=== PATIENT | female | born 2000 | race Caucasian/White ===

== ENCOUNTER 2021-06-05 16:10 | Emergency (ER) | payer OTHER, SELFPAY ==
--- NOTE | ~2021-06-05 | XR_ITS ---
EXAMINATION: XR chest 2V 06/05/2021 19:00 INDICATION: Chest wall pain PROCEDURE: 2 view chest COMPARISON: No prior studies for comparison. FINDINGS: The lungs are clear. The cardiomediastinal silhouette is within normal limits. There are no pleural effusions. There is no pneumothorax suspected. IMPRESSION: 1: NO ACUTE CARDIOPULMONARY DISEASE. Reviewed, dictated and finalized at location A. ANESE WHEELER
--- NOTE | ~2021-06-05 | XR_ITS ---
[id number] 06/05/2021 19:01 Indication: Neck pain Procedure: 3 views of the cervical spine Comparison: No prior studies for comparison. Findings: Vertebral body and disc heights are preserved. No fracture, subluxation or dislocation. No prevertebral soft tissue abnormality. Odontoid process is normal. Lung apices are normal. Impression: 1: No acute abnormality of the cervical spine. Reviewed, dictated and finalized at location A. REFINISHER Impression: 1: No acute abnormality of the cervical spine.
[2021-06-05 16:13] VITALS: BP 112/82; PULSE 90; RESP 16; TEMP 36.4; O2SAT 100
[2021-06-05 17:24] VITALS: BP 115/76; PULSE 98; RESP 16; TEMP 36.6; O2SAT 99
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
--- NOTE | 2021-06-05 18:51 | PC.NURSE ---
pt. to xray
[2021-06-05] MEDS: ACETAMINOPHEN 325 MG TABLET 650 MG PO (19:12)
[2021-06-05 19:41] VITALS: BP 100/70; PULSE 74; RESP 19; O2SAT 97
== END 2021-06-05 19:41 | disposition home or self-care (01) ==
PROVIDERS: Emergency Provider Emergency Medicine; PCP Internal Medicine
DX: S09.90XA Unspecified injury of head, initial encounter (principal); R07.89 Other chest pain; S19.9XXA Unspecified injury of neck, initial encounter; V49.40XA Driver injured in collision with unspecified motor vehicles in traffic accident, initial encounter
CPT/HCPCS: 71046; 72040; 99284; A9270